=== PATIENT | male | born 1945 | race Caucasian/White ===

== ENCOUNTER → 2016-08-01 | Day surgery (SDC) | payer OTHER ==
[2016-07-25 09:57] VITALS: BMI 21.0
[~2016-08-01] VITALS: Ht 172.7 cm; Wt 63.6 kg
[~2016-08-01] MED LIST: ASPI81TA28 PO; ATROPINE SULFATE 0.1 MG/ML 5ML SYR IV PRN; DEXTROSE 50% 50 ML SYR IV ONE; DEXTROSE 50% 50 ML SYR ONE; EpHEDrine SULFATE INJ 50 MG/ML AMP IV PRN; FLM4 PO; INSDGI SC; LIDOCAINE HCL 2% 2 ML VIAL (20MG/ML) ONE; LISI-729 PO; METF-384 PO; MIDAZOLAM HCL 1 MG/ML 2ML VIAL ONE; NVLGIPEN SC; ONDANSETRON INJ 2 MG/ML 2 ML VIAL ONE; PROPOFOL IV EMULSION 10 MG/ML 20 ML VIAL IV ONE; SODIUM CHLORIDE 0.9% 500ML 500 ML IV ONE
[2016-08-01 12:36] VITALS: Ht 172.7 cm; Wt 63.6 kg
--- NOTE | 2016-08-01 12:52 | Endo History and Physical ---
History & Physical Date of Service: Aug 01, 2016. Chief Complaint: screening Referring Physician: Dr High History of Present Illness 70 yo CM who presents for screening colonoscopy. Past Surgical History Hx Cardiac Surgery: No Hx Internal Defibrillator: No Hx Pacemaker: No Hx Abdominal Surgery: No Hx of Implantable Prosthesis: No Hx Post-Op Nausea and Vomiting: No Hx Cancer Surgery: No Hx Thoracic Surgery: Yes (CHEST TUBE AND THORACIC DRAINAGE) Hx Orthopedic: Yes (LT/RT KNEE SURGERY, LT SHOULDER SURGERY WITH HARDWARE) Hx Urinary Tract Surgery: No Family History None Social History Smoking Status: Former Smoker Hx Substance Use: No Hx Alcohol Use: No Allergies Coded Allergies: No Known Allergies (Unverified , 07/25/16) Current Medications Reported Home Medications Medications Dose Route/Sig Max Daily Dose Days Date Category Dose Instructions Aspirin Ec (Aspirin) 81 Mg Tab 81 Mg PO QAM 07/25/16 Reported Tamsulosin HCl 0.4 Mg Cap 1 Cap PO QAM 07/25/16 Reported Prinivil (Lisinopril) 5 Mg Tab 5 Mg PO QAM 07/25/16 Reported Glucophage (Metformin Hcl) 1,000 Mg Tab 1,000 Mg PO BID 07/25/16 Reported Lantus (Insulin Glargine) 100 Unit/Ml Inj 20 Units SC QAM 07/25/16 Reported Novolog Flexpen (Insulin Aspart) 100 Units/Ml Inj 1 Dose SC UD 07/25/16 Reported PER SLIDING SCALE Vital Signs Weight (Kilograms): 63.64 Height (Feet): 5 Height (Inches): 8 Date Time Temp Pulse Resp B/P Pulse Ox O2 Delivery O2 Flow Rate FiO2 08/01/16 12:43 36.5 80 20 178/86 98 Room Air Physical Exam General Appearance: WD/WN, no apparent distress Respiratory/Chest: Auscultation: breath sounds normal Cardiovascular: Heart Auscultation: RRR Abdomen: Bowel Sounds: normal Inspection & Palpation: soft, non-distended, no tenderness, guarding & rebound Assessment and Plan Assessment: 70 yo CM who presents for screening colonoscopy. Plan: Proceed with colonoscopy.
--- NOTE | 2016-08-01 14:10 | Anesthesiology Progress Note ---
Anesthesia Post Op Note Date & Time Aug 01, 2016 at 14:09 Vital Signs Pain Intensity: 0 Vital Signs Past 12 Hours Date Time Temp Pulse Resp B/P Pulse Ox O2 Delivery O2 Flow Rate FiO2 08/01/16 12:43 36.5 80 20 178/86 98 Room Air Notes Mental Status: alert / awake / arousable, participated in evaluation Pt Amnestic to Procedure: Yes Nausea / Vomiting: adequately controlled Pain: adequately controlled Airway Patency, RR, SpO2: stable & adequate BP & HR: stable & adequate Hydration State: stable & adequate Anesthetic Complications: no major complications apparent
--- NOTE | 2016-08-01 14:10 | Discharge Instructions ---
Endoscopy Patient Instructions Date / Procedure(s) Performed Aug 01, 2016. Colonoscopy Allergy Information Coded Allergies: No Known Allergies (Unverified , 07/25/16) Discharge Date / Findings Aug 01, 2016. Diverticulosis Internal hemorrhoids Medication Instructions Stopped Medication(s): metformin OK to resume all medications today as prescribed. Reported Home Medications Medications Dose Route/Sig Max Daily Dose Days Date Category Dose Instructions Aspirin Ec (Aspirin) 81 Mg Tab 81 Mg PO QAM 07/25/16 Reported Tamsulosin HCl 0.4 Mg Cap 1 Cap PO QAM 07/25/16 Reported Prinivil (Lisinopril) 5 Mg Tab 5 Mg PO QAM 07/25/16 Reported Glucophage (Metformin Hcl) 1,000 Mg Tab 1,000 Mg PO BID 07/25/16 Reported Lantus (Insulin Glargine) 100 Unit/Ml Inj 20 Units SC QAM 07/25/16 Reported Novolog Flexpen (Insulin Aspart) 100 Units/Ml Inj 1 Dose SC UD 07/25/16 Reported PER SLIDING SCALE Provider Instructions Activity Restrictions - No exercising or heavy lifting for 24 hours. - Do not drink alcohol the day of the procedure. - Do not drive a car or operate machinery until the day after the procedure. - Do not make any important decisions or sign important papers in 24 hours after the procedure. Following Day: - Return to full activity which may include returning to work/school. Diet Start your diet with liquids and light foods (jello, soup, juice, toast). Then eat your usual diet if not nauseated. Treatment For Common After Affects For mild abdominal pain, bloating, or excessive gas: - Rest - Eat lightly - Lie on right side Follow-Up Information Follow-up with Dr High as scheduled Anesthesia Information What You Should Know You have had a procedure that required some medicine to reduce anxiety and discomfort. This treatment is called moderate sedation. After receiving the treatment, you may be sleepy, but you will be able to breathe on your own. The effects of the treatment may last for several hours. Follow these instructions along with Activity/Diet recommendations noted above: * Do NOT do anything where dizziness or clumsiness would be dangerous. * Rest quietly at home today, then you can be up and about tomorrow. * Have a responsible person stay with you the rest of today. * You may have had an I.V. today. If so, you may take the dressing off later today. Recommendations Call your doctor if: * Trouble breathing * Continuous vomiting for more than 24 hours * Temperature above 101 degrees * Severe abdominal pain or bloating * Pain not relieved by pain medicine ordered * There is increased drainage or redness from any incision * A large amount of rectal bleeding greater than 2-3 tablespoons. (If you had a polyp/s removed or have hemorrhoids, a small amount of blood - from the rectum is to be expected.) * You have any unanswered questions or concerns. IN THE EVENT OF A SERIOUS EMERGENCY, GO TO THE NEAREST EMERGENCY ROOM Your discharge instructions were prepared by provider Thomas Pichardo. Patient Instructions Signature Page Jules Brownlee Patient (or Guardian) Signature/Date: I have read and understand the instructions given to me by my caregivers. Caregiver/RN/Doctor Signature/Date: The above-named patient and/or guardian has received patient instructions on this date. + Original Patient Signature Page (only) stays with chart. Please make copy for patient.
--- NOTE | 2016-08-01 14:18 | GI REPORT ---
Procedure Date: 08/01/2016 1:41 PM THIS REPORT HAS BEEN AMENDED Addendum Number: 1 Addendum Date: 08/15/2016 4:43:29 PM No specimens were obtained during this procedure, and therefore, no pathology is pending. Repeat colonoscopy in 10 years Procedure: Colonoscopy Indications: Screening for colorectal malignant neoplasm Medicines: Monitored Anesthesia Care Complications: No immediate complications. Estimated Blood Loss: Estimated blood loss: none. Procedure: Pre-Anesthesia Assessment: - Prior to the procedure, a History and Physical was performed, and patient medications and allergies were reviewed. The patient's tolerance of previous anesthesia was also reviewed. The risks and benefits of the procedure and the sedation options and risks were discussed with the patient. All questions were answered, and informed consent was obtained. Prior Anticoagulants: The patient has taken aspirin, last dose was 1 day prior to procedure. ASA Grade Assessment: III - A patient with severe systemic disease. After reviewing the risks and benefits, the patient was deemed in satisfactory condition to undergo the procedure. After I obtained informed consent, the scope was passed under direct vision. Throughout the procedure, the patient's blood pressure, pulse, and oxygen saturations were monitored continuously. The Scope was introduced through the anus and advanced to the terminal ileum. The colonoscopy was performed without difficulty. The patient tolerated the procedure well. The quality of the bowel preparation was good. The terminal ileum, ileocecal valve, appendiceal orifice, and rectum were photographed. Findings: Multiple small-mouthed diverticula were found in the sigmoid colon. Non-bleeding internal hemorrhoids were found during retroflexion. The hemorrhoids were small. Impression: - Diverticulosis in the sigmoid colon. - Non-bleeding internal hemorrhoids. - No specimens collected. Recommendation: - Resume previous diet. - Continue present medications. - Repeat colonoscopy for surveillance based on pathology results. - Return to primary care physician as previously scheduled. Thomas Gurdeep Pichardo, DO 08/01/2016 2:17:11 PM This report has been signed electronically. Note Initiated On: 08/01/2016 1:41 PM I attest to the content of the Intraoperative Record and orders documented therein, exceptions below Thomas QuevedoChas Pichardo, DO 08/15/2016 4:45:43 PM This report has been signed electronically.
[2016-08-01 14:36] VITALS: BP 148/83; PULSE 65; O2SAT 97
== END | disposition home or self-care (01) ==
LOC: C.GI 12:07
PROVIDERS: ATTEND Internal Medicine
DX: Z12.11 Encounter for screening for malignant neoplasm of colon (principal); K64.8 Other hemorrhoids; K57.30 Diverticulosis of large intestine without perforation or abscess without bleeding; Z87.891 Personal history of nicotine dependence; Z79.82 Long term (current) use of aspirin